=== PATIENT | male | born 1975 | race Caucasian/White ===

== ENCOUNTER → 2016-05-04 | Day surgery (SDC) | payer OTHER ==
[~2016-05-04] VITALS: Ht 165.1 cm; Wt 68.0 kg
[~2016-05-04] MED LIST: ADVAIR 250/501 EA INH; AMITRIPTYLINE100 M1 PO; AMITRIPTYLINE50 MG PO; AMLODIPINE5 MG PO; AMOXICILLIN500 MG PO; ANAPROX DS550 MG PO; ANTIBIOTIC; ANUSOL-HC25 MG RC; ATIVAN0.5 MG PO; ATIVAN1 MG PO; AUGMENTIN 875 M1 TA1 PO; BACTRIM DS 8001 TA1 PO; CARAFATE1 G1 PO; CATAFLAM50 MG PO; CEPHALEXIN500 M1 PO; CIPRO500 MG PO; CIPROFLOXACIN500 MG PO; CLEOCIN150 MG PO; CLINDAMYCIN150 MG PO; CLINDAMYCIN300 MG PO; CYCLOBENZAPRINE5 M3 PO; DARVOCET N 1001 TAB PO; DEPAKOTE250 MG PO; DEPAKOTE500 MG PO; DILANTIN100 MG PO; DOXYCYCLINE MO100 MG PO; FIORICET 325 MG1 TAB PO; FLOMAX0.4 MG PO; FOLIC + B12 1 M1 TAB PO; FOLIC ACID1 MG PO; Fioricet 325 MG1 TAB PO; GOUT MEDICINE; HCTZ; HYDROCODONE BIT1 T11 PO; HYDROCODONE BIT1 T20 PO; IBU-8800 MG PO; IBU800 MG PO; IBUPROFEN200 M2 PO; INDOCIN25 MG PO; INDOCIN50 MG PO; INVEGA6 MG PO; K + POTASSIUM20 MEQ PO; K-DUR20 MEQ PO; KEFLEX500 MG PO; LASIX40 MG PO; LISINOPRIL HCTZ1 TA1 PO; LISINOPRIL/HCTZ1 TA4 PO; LISINOPRIL10 MG PO; LORAZEPAM0.5 MG PO; METOPROLOL SUCC25 M2 PO; MOTRIN IB200 MG PO; MOTRIN300 MG PO; MOTRIN800 MG PO; Motrin,Rufen800 MG PO; NKHM; NORCO 325 MG-7.1 TAB PO; PEN-VEE K500 MG PO; PENICILLIN VK500 MG PO; PENICILLIN-VK500 M1 PO; PEPCID20 MG PO; PERCOCET 325 MG1 TA2 PO; PHENERGAN25 M1 PO; PRILOSEC40 MG PO; PRINIVIL10 MG PO; Peridex 473 ML473 ML PO; QUALITY CHOICE PO; QUETIAPINE FUM100 M3 PO; REQUIP1 MG PO; REQUIP2 M2 PO; ROBAXIN750 MG PO; ROPINIROLE HYDRO1 MG PO; SEPTRA DS 800 M1 TAB PO; SEROQUEL XR300 MG PO; SEROQUEL100 MG PO; SEROQUEL25 MG PO; SEROQUEL50 MG PO; STELAZINE1 MG PO; SUDOGEST30 MG PO; TRAMADOL HCL50 MG PO; TRAMADOL50 MG PO; TYLENOL EXTRA500 M2 PO; TYLENOL500 MG PO; TYLENOL650 M1 PO; ULTRAM50 MG PO; VASOTEC5 MG PO; VENTOLIN H0.09 MG/AC INH; VIBRAMYCIN100 MG PO; VICO10300 PO; VICODIN 5/500 505 MG PO; VICODIN 500 MG-1 TAB PO; VICODIN ES 7501 TAB PO; VICODIN1 TAB PO; VISTARIL25 M1 PO; VITAMIN; VOLTAREN50 M1 PO; VOLTAREN75 MG PO; Vicodin 5/500 505 MG PO; ZANAFLEX2 M1 PO; ZANTAC150 MG PO; ZOFRAN ODT4 MG SL; [UNRECOGNIZED DRUG - OTHER] TP
--- NOTE | ~2016-05-04 | O ---
[place], [place] OPERATIVE NOTE NAME: VILMA GARCIA UNIT #: [id number] ROOM: DOCTOR: BOB HUTTON DMD BIRTHDATE: [birth year] DOS: PREOPERATIVE DIAGNOSES: Caries and anxiety. POSTOPERATIVE DIAGNOSES: Caries and anxiety. ANESTHESIA: General anesthesia with endotracheal intubation. FLUIDS: Minimal. ESTIMATED BLOOD LOSS: Minimal. COMPLICATIONS: None. CONDITION: To PACU, stable. DESCRIPTION OF PROCEDURE: The patient was brought to the OR and placed in supine position, IV and EKG lines were placed. Endotracheal intubation and general anesthesia was administered. The patient was prepped and draped for oral procedures. Risks and benefits were explained to the patient prior to surgery. Clinical exam and x-rays were taken, determined nonrestorable maxillary and mandibular dentition. Procedures performed: Complete extraction of teeth numbers 2, 3, 6, 7, 8, 9, 10, 11, 13, 14, 15, 21, 22, 23, 24, 25, 26, 27, 28, tooth #13 buccal and lingual roots fractured. Full thickness flaps with bone removal to retreat root fragments, full thickness flaps in all 4 quadrants with moderate bone removal, sutured with 4-0 Vicryl, lavaged x 2. Throat pack removed. The patient left the OR in good condition and went to the PACU. BOB HUTTON DMD CM:OPRECORD:OPERATIVE NOTE [id number] BOB HUTTON DMD 05/05/16 1146 interface
[2016-05-04 07:10] VITALS: BP 119/72
[2016-05-04 10:55] VITALS: BP 138/82
[2016-05-04 11:10] VITALS: BP 124/78
[2016-05-04 11:25] VITALS: BP 129/81
[2016-05-04 11:39] VITALS: BP 124/80
[2016-05-04 11:53] VITALS: BP 124/80
== END | disposition home or self-care (01) ==
LOC: SDC 03-31 11:00
DX: K02.9 Dental caries, unspecified (principal); F41.9 Anxiety disorder, unspecified; I10 Essential (primary) hypertension; K21.9 Gastro-esophageal reflux disease without esophagitis; F17.210 Nicotine dependence, cigarettes, uncomplicated; M06.9 Rheumatoid arthritis, unspecified; F32.9 Major depressive disorder, single episode, unspecified; I25.2 Old myocardial infarction; Z86.14 Personal history of Methicillin resistant Staphylococcus aureus infection; J45.909 Unspecified asthma, uncomplicated; Z86.73 Personal history of transient ischemic attack (TIA), and cerebral infarction without residual deficits; Z80.9 Family history of malignant neoplasm, unspecified; Z82.49 Family history of ischemic heart disease and other diseases of the circulatory system; Z83.3 Family history of diabetes mellitus

== ENCOUNTER 2016-08-18 16:05 | Emergency (ER) | payer OTHER ==
[~2016-08-18] VITALS: Wt 68.0 kg
[2016-08-18] MEDS ORDERED: PREDNISONE10 MG PO (18:04)
[2016-08-18] MEDS ORDERED: AUGMENTIN 875875 MG PO (18:04)
[2016-08-18] MEDS ORDERED: DUONEB 3 MG/3 ML3 M1 INH (18:04)
== END 2016-08-18 17:12 | disposition home or self-care (01) ==
LOC: ED 16:05
DX: J20.9 Acute bronchitis, unspecified (principal); F17.200 Nicotine dependence, unspecified, uncomplicated; Z88.1 Allergy status to other antibiotic agents; Z88.6 Allergy status to analgesic agent; Z79.899 Other long term (current) drug therapy

== ENCOUNTER 2016-08-29 11:11 | Emergency (ER) | payer OTHER ==
[~2016-08-29] VITALS: Wt 63.5 kg
[~2016-08-29 11:11] MED LIST changes: +AUGMENTIN 875875 MG PO; +DUONEB 3 MG/3 ML3 M1 INH; +PREDNISONE10 MG PO
[2016-08-29] MEDS ORDERED: AMITRIPTYLINE50 MG PO (11:21)
[2016-09-01] MEDS ORDERED: CEPHALEXIN500 M1 PO (09:54)
== END 2016-08-29 12:46 | disposition home or self-care (01) ==
LOC: ED 11:11
DX: S93.401A Sprain of unspecified ligament of right ankle, initial encounter (principal); F17.200 Nicotine dependence, unspecified, uncomplicated; Z98.890 Other specified postprocedural states; Z79.899 Other long term (current) drug therapy; Z88.6 Allergy status to analgesic agent; Z88.5 Allergy status to narcotic agent; Z88.1 Allergy status to other antibiotic agents; W10.9XXA Fall (on) (from) unspecified stairs and steps, initial encounter; Y93.89 Activity, other specified; Y92.89 Other specified places as the place of occurrence of the external cause; Y99.9 Unspecified external cause status

== ENCOUNTER → 2016-09-01 | Emergency (ER) | payer OTHER ==
[~2016-09-01] VITALS: Ht 167.6 cm; Wt 63.5 kg
== END ==
LOC: ED 09:09
DX: R60.1 Generalized edema (principal); M79.645 Pain in left finger(s); F17.200 Nicotine dependence, unspecified, uncomplicated; Z88.6 Allergy status to analgesic agent; Z88.1 Allergy status to other antibiotic agents; Z79.899 Other long term (current) drug therapy

== ENCOUNTER 2016-09-04 18:58 | Emergency (ER) | payer OTHER ==
[~2016-09-04] VITALS: Ht 165.1 cm; Wt 63.5 kg
== END 2016-09-04 20:42 | disposition home or self-care (01) ==
LOC: ED 18:58
DX: M25.571 Pain in right ankle and joints of right foot (principal); F10.120 Alcohol abuse with intoxication, uncomplicated; M79.671 Pain in right foot; F17.200 Nicotine dependence, unspecified, uncomplicated; Z88.6 Allergy status to analgesic agent; Z88.1 Allergy status to other antibiotic agents; Z79.899 Other long term (current) drug therapy

== ENCOUNTER 2016-10-13 12:17 | Emergency (ER) | payer OTHER ==
[~2016-10-13] VITALS: Ht 167.6 cm; Wt 72.6 kg
[2016-10-13 12:55] LABS: BASO % 0.3 % (0.0-1.0); EOS % 0.7 % (1.0-4.0); HEMATOCRIT 41.5 % (42.0-52.0); HEMOGLOBIN 13.9 g/dl (14.0-18.0); LYMPH # 1.2 10*3/uL (1.3-4.4); LYMPH % 18.7 % (27.0-41.0); MEAN CELL VOLUME 91.4 fl (80.0-94.0); MEAN CORPUSCULAR HGB 30.6 pg (27.0-31.0); MEAN CORPUSCULAR HGB CONC 33.5 g/dl (33.0-37.0); MEAN PLATELET VOLUME 9.7 fl (9.6-12.3); MONO # 0.6 10*3/uL (0.1-1.0); MONO % 9.3 % (3.0-9.0); NEUT # 4.3 10*3/uL (2.3-7.9); NEUT % 70.7 % (47.0-73.0); PLATELET COUNT AUTOMATED 177 10*3/uL (130-400); RED BLOOD COUNT 4.54 10*6/uL (4.50-5.90); RED CELL DISTRI WIDTH 13.3 % (0-14.5); WHITE BLOOD COUNT 6.1 10*3/uL (4.8-10.8)
[2016-10-13 13:06] LABS: BILIRUBIN NEGATIVE (NEGATIVE); BLOOD 1+ (NEGATIVE); CLARITY SL CLOUDY (CLEAR); COLOR YELLOW (YELLOW); GLUCOSE NEGATIVE (NEGATIVE); KETONE NEGATIVE (NEGATIVE); LEUKO ESTERASE NEGATIVE (NEGATIVE); NITRITE NEGATIVE (NEGATIVE); PROTEIN NEGATIVE (NEGATIVE); UROBILINOGEN 0.2 E.U./dl (0.2-1.0)
[2016-10-13 13:07] LABS: BUN 10 mg/dl (7-24); CARBON DIOXIDE 27 mmol/L (21-32); CHLORIDE 106 mmol/L (98-107); EST GLOM FILT AFRICAN AMERICAN > 60 ml/min; GLUCOSE 92 mg/dL (65-99); POTASSIUM 3.5 mmol/L (3.5-5.1); SODIUM 142 mmol/L (136-145)
[2016-10-13 13:15] LABS: URINE AMPHETAMINES < 1000 (1000ng/ml); URINE BARBITURATES < 200 (200ng/ml); URINE COCAINE > 300 (300ng/ml)
[2016-10-13 13:31] LABS: URINE REFLEX COMMENT YES (NO); WBC 0-2 wbc/hpf (0-5)
[2016-10-14 02:48] LABS: ALBUMIN 3.9 gm/dl (3.1-4.5); BILIRUBIN, TOTAL 0.7 mg/dl (0.2-1.0)
[2016-10-14 02:51] LABS: BILIRUBIN, DIRECT 0.2 mg/dL (0.0-0.2)
== END 2016-10-14 13:27 | disposition home health service (06) ==
LOC: ED 12:17
PROVIDERS: Emergency Medicine; Student in an Organized Health Care Education/Training Program
DX: R45.851 Suicidal ideations (principal); F32.9 Major depressive disorder, single episode, unspecified; R45.850 Homicidal ideations; Z87.442 Personal history of urinary calculi; Z88.1 Allergy status to other antibiotic agents; Z88.6 Allergy status to analgesic agent; Z79.899 Other long term (current) drug therapy

== ENCOUNTER 2016-11-06 13:44 | Emergency (ER) | payer OTHER | END 2016-11-06 17:01 | disposition short-term general hospital (02) | LOC: ED 13:44 | DX: N48.39 Other priapism (principal); R03.0 Elevated blood-pressure reading, without diagnosis of hypertension; F17.200 Nicotine dependence, unspecified, uncomplicated; Z98.890 Other specified postprocedural states; Z85.46 Personal history of malignant neoplasm of prostate; Z87.442 Personal history of urinary calculi; Z79.899 Other long term (current) drug therapy; Z88.6 Allergy status to analgesic agent; Z88.5 Allergy status to narcotic agent; Z88.1 Allergy status to other antibiotic agents ==

== ENCOUNTER 2016-11-16 10:43 | Emergency (ER) | payer OTHER ==
[~2016-11-16] VITALS: Ht 167.6 cm; Wt 68.0 kg
[2016-11-16 12:17] LABS: BASO % 0.2 % (0.0-1.0); EOS % 0.2 % (1.0-4.0); HEMATOCRIT 46.3 % (42.0-52.0); HEMOGLOBIN 15.3 g/dl (14.0-18.0); LYMPH % 12.4 % (27.0-41.0); MEAN CORPUSCULAR HGB 30.4 pg (27.0-31.0); MEAN PLATELET VOLUME 9.7 fl (9.6-12.3); MONO # 0.6 10*3/uL (0.1-1.0); MONO % 6.8 % (3.0-9.0); NEUT # 6.7 10*3/uL (2.3-7.9); NEUT % 80.2 % (47.0-73.0); PLATELET COUNT AUTOMATED 167 10*3/uL (130-400); RED BLOOD COUNT 5.03 10*6/uL (4.50-5.90); RED CELL DISTRI WIDTH 13.2 % (0-14.5); WHITE BLOOD COUNT 8.3 10*3/uL (4.8-10.8)
[2016-11-16 12:24] LABS: INTERNATIONAL NORM RATIO 0.9 (2.0-3.5)
[2016-11-16 12:31] LABS: BUN 11 mg/dl (7-24); CARBON DIOXIDE 30 mmol/L (21-32); CHLORIDE 106 mmol/L (98-107); EST GLOM FILT AFRICAN AMERICAN > 60 ml/min; GLUCOSE 115 mg/dL (65-99); POTASSIUM 5.5 mmol/L (3.5-5.1); SODIUM 138 mmol/L (136-145)
== END 2016-11-16 12:58 | disposition short-term general hospital (02) ==
LOC: ED 10:43
PROVIDERS: Nurse Practitioner Family
DX: N48.30 Priapism, unspecified (principal); F17.200 Nicotine dependence, unspecified, uncomplicated; Z88.6 Allergy status to analgesic agent; Z88.1 Allergy status to other antibiotic agents; Z79.899 Other long term (current) drug therapy

== ENCOUNTER 2016-11-26 09:35 | Emergency (ER) | payer OTHER ==
[~2016-11-26] VITALS: Wt 70.3 kg
[2016-11-26 10:20] LABS: BASO % 0.5 % (0.0-1.0); EOS # 0.1 10*3/uL (0.0-0.4); EOS % 1.1 % (1.0-4.0); HEMATOCRIT 43.7 % (42.0-52.0); HEMOGLOBIN 14.8 g/dl (14.0-18.0); LYMPH # 1.3 10*3/uL (1.3-4.4); LYMPH % 20.9 % (27.0-41.0); MEAN CELL VOLUME 90.1 fl (80.0-94.0); MEAN CORPUSCULAR HGB 30.5 pg (27.0-31.0); MEAN CORPUSCULAR HGB CONC 33.9 g/dl (33.0-37.0); MEAN PLATELET VOLUME 9.1 fl (9.6-12.3); MONO # 0.7 10*3/uL (0.1-1.0); MONO % 10.3 % (3.0-9.0); NEUT # 4.3 10*3/uL (2.3-7.9); NEUT % 66.9 % (47.0-73.0); PLATELET COUNT AUTOMATED 197 10*3/uL (130-400); RED BLOOD COUNT 4.85 10*6/uL (4.50-5.90); RED CELL DISTRI WIDTH 12.7 % (0-14.5); WHITE BLOOD COUNT 6.4 10*3/uL (4.8-10.8)
[2016-11-26 10:28] LABS: ALBUMIN 3.9 gm/dl (3.1-4.5); ALKALINE PHOSPHATASE 79 U/L (45-117); BILIRUBIN, TOTAL 0.3 mg/dl (0.2-1.0); BUN 17 mg/dl (7-24); CARBON DIOXIDE 24 mmol/L (21-32); CHLORIDE 112 mmol/L (98-107); EST GLOM FILT AFRICAN AMERICAN > 60 ml/min; GLUCOSE 107 mg/dL (65-99); POTASSIUM 4.1 mmol/L (3.5-5.1); SGOT/AST 27 IU/L (3-35); SGPT/ALT 65 U/L (12-78); SODIUM 141 mmol/L (136-145); TOTAL PROTEIN 7.5 gm/dL (6.4-8.2)
[2016-11-26 10:29] LABS: PROTHROMBIN TIME 10.1 SECONDS (9.0-12.4)
== END 2016-11-26 11:20 | disposition short-term general hospital (02) ==
LOC: ED 09:35
PROVIDERS: Nurse Practitioner Family
DX: N48.30 Priapism, unspecified (principal); R03.0 Elevated blood-pressure reading, without diagnosis of hypertension; F17.200 Nicotine dependence, unspecified, uncomplicated; Z87.442 Personal history of urinary calculi; Z88.1 Allergy status to other antibiotic agents; Z88.6 Allergy status to analgesic agent

== ENCOUNTER 2017-03-14 15:19 | Emergency (ER) | payer OTHER ==
[~2017-03-14] VITALS: Wt 72.6 kg
[2017-03-14 15:52] LABS: BILIRUBIN NEGATIVE (NEGATIVE); BLOOD NEGATIVE (NEGATIVE); CLARITY SL CLOUDY (CLEAR); COLOR YELLOW (YELLOW); GLUCOSE NEGATIVE (NEGATIVE); KETONE NEGATIVE (NEGATIVE); LEUKO ESTERASE NEGATIVE (NEGATIVE); NITRITE NEGATIVE (NEGATIVE); PH 6.5 (5.0-9.0); SPECIFIC GRAVITY 1.015 (1.005-1.030); UROBILINOGEN 0.2 E.U./dl (0.2-1.0)
[2017-03-14 16:05] LABS: BACTERIA 1+; EPITHELIAL CELLS 0-2; RBC 0-2 rbc/hpf (0-2)
[2017-03-14 16:19] LABS: BASO % 0.3 % (0.0-1.0); EOS # 0.1 10*3/uL (0.0-0.4); EOS % 1.2 % (1.0-4.0); HEMATOCRIT 46.7 % (42.0-52.0); HEMOGLOBIN 15.5 g/dl (14.0-18.0); LYMPH # 1.5 10*3/uL (1.3-4.4); MEAN CORPUSCULAR HGB 28.9 pg (27.0-31.0); MEAN CORPUSCULAR HGB CONC 33.2 g/dl (33.0-37.0); MEAN PLATELET VOLUME 9.8 fl (9.6-12.3); MONO # 0.6 10*3/uL (0.1-1.0); MONO % 6.7 % (3.0-9.0); NEUT # 6.4 10*3/uL (2.3-7.9); NEUT % 74.5 % (47.0-73.0); PLATELET COUNT AUTOMATED 220 10*3/uL (130-400); RED BLOOD COUNT 5.37 10*6/uL (4.50-5.90); RED CELL DISTRI WIDTH 13.2 % (0-14.5); WHITE BLOOD COUNT 8.6 10*3/uL (4.8-10.8)
[2017-03-14 16:36] LABS: ALBUMIN 4.4 gm/dl (3.1-4.5); ALKALINE PHOSPHATASE 86 U/L (45-117); BUN 9 mg/dl (7-24); CHLORIDE 102 mmol/L (98-107); CREATININE 0.87 mg/dL (0.70-1.30); POTASSIUM 4.6 mmol/L (3.5-5.1); SGOT/AST 46 IU/L (3-35); SGPT/ALT 76 U/L (12-78); SODIUM 140 mmol/L (136-145); TOTAL PROTEIN 8.2 gm/dL (6.4-8.2)
[2017-03-14] MEDS ORDERED: CYCLOBENZAPRINE5 M3 PO (18:29)
== END 2017-03-14 18:37 | disposition home or self-care (01) ==
LOC: ED 15:19
PROVIDERS: Nurse Practitioner
DX: M54.5 Low back pain (principal); F17.200 Nicotine dependence, unspecified, uncomplicated; F10.10 Alcohol abuse, uncomplicated; Z79.899 Other long term (current) drug therapy; Z88.1 Allergy status to other antibiotic agents; Z88.8 Allergy status to other drugs, medicaments and biological substances; Z88.5 Allergy status to narcotic agent

== ENCOUNTER 2017-09-08 03:45 | Emergency (ER) | payer OTHER ==
[~2017-09-08] VITALS: Ht 165.1 cm; Wt 72.6 kg
[2017-09-08] MEDS ORDERED: AMITRIPTYLINE25 MG PO (03:58)
[2017-09-08 04:36] LABS: BILIRUBIN NEGATIVE (NEGATIVE); BLOOD TRACE-INTACT (NEGATIVE); CLARITY CLEAR (CLEAR); COLOR YELLOW (YELLOW); GLUCOSE NEGATIVE (NEGATIVE); KETONE TRACE (NEGATIVE); LEUKO ESTERASE NEGATIVE (NEGATIVE); NITRITE NEGATIVE (NEGATIVE); SPECIFIC GRAVITY 1.025 (1.005-1.030)
[2017-09-08 04:39] LABS: BASO % 0.5 % (0.0-1.0); EOS # 0.1 10*3/uL (0.0-0.4); EOS % 1.9 % (1.0-4.0); HEMATOCRIT 44.6 % (42.0-52.0); HEMOGLOBIN 15.1 g/dl (14.0-18.0); LYMPH # 1.3 10*3/uL (1.3-4.4); LYMPH % 20.7 % (27.0-41.0); MEAN CELL VOLUME 90.3 fl (80.0-94.0); MEAN CORPUSCULAR HGB 30.6 pg (27.0-31.0); MEAN CORPUSCULAR HGB CONC 33.9 g/dl (33.0-37.0); MEAN PLATELET VOLUME 9.5 fl (9.6-12.3); MONO # 0.8 10*3/uL (0.1-1.0); MONO % 12.4 % (3.0-9.0); NEUT % 64.2 % (47.0-73.0); PLATELET COUNT AUTOMATED 177 10*3/uL (130-400); RED BLOOD COUNT 4.94 10*6/uL (4.50-5.90); RED CELL DISTRI WIDTH 13.2 % (0-14.5); WHITE BLOOD COUNT 6.3 10*3/uL (4.8-10.8)
[2017-09-08 04:44] LABS: BACTERIA TRACE; CALCIUM OXALATE CRYSTALS 1+
[2017-09-08 04:54] LABS: ALBUMIN 4.1 gm/dl (3.1-4.5); ALKALINE PHOSPHATASE 80 U/L (45-117); BUN 15 mg/dl (7-24); CHLORIDE 108 mmol/L (98-107); CREATININE 0.79 mg/dL (0.70-1.30); POTASSIUM 3.6 mmol/L (3.5-5.1); SGOT/AST 40 IU/L (3-35); SGPT/ALT 73 U/L (12-78); SODIUM 140 mmol/L (136-145); TOTAL PROTEIN 7.2 gm/dL (6.4-8.2)
[2017-09-08] MEDS ORDERED: ANAPROX DS550 MG PO (06:03)
== END 2017-09-08 06:37 | disposition home or self-care (01) ==
LOC: ED 03:45
PROVIDERS: Emergency Medicine Emergency Medical Services
DX: M25.551 Pain in right hip (principal); R10.32 Left lower quadrant pain; Z88.1 Allergy status to other antibiotic agents; Z88.6 Allergy status to analgesic agent

== ENCOUNTER 2017-09-13 13:08 | Emergency (ER) | payer OTHER ==
[~2017-09-13] VITALS: Ht 165.1 cm; Wt 74.8 kg
[~2017-09-13 13:08] MED LIST changes: +AMITRIPTYLINE25 MG PO
[2017-09-13 14:06] LABS: BASO % 0.3 % (0.0-1.0); EOS % 0.5 % (1.0-4.0); HEMOGLOBIN 15.5 g/dl (14.0-18.0); LYMPH % 14.8 % (27.0-41.0); MEAN CELL VOLUME 89.3 fl (80.0-94.0); MEAN CORPUSCULAR HGB 30.1 pg (27.0-31.0); MEAN CORPUSCULAR HGB CONC 33.7 g/dl (33.0-37.0); MEAN PLATELET VOLUME 9.3 fl (9.6-12.3); MONO # 0.5 10*3/uL (0.1-1.0); MONO % 7.8 % (3.0-9.0); NEUT # 4.9 10*3/uL (2.3-7.9); NEUT % 76.3 % (47.0-73.0); PLATELET COUNT AUTOMATED 158 10*3/uL (130-400); RED BLOOD COUNT 5.15 10*6/uL (4.50-5.90); RED CELL DISTRI WIDTH 13.2 % (0-14.5); WHITE BLOOD COUNT 6.4 10*3/uL (4.8-10.8)
[2017-09-13 14:24] LABS: ALBUMIN 4.3 gm/dl (3.1-4.5); ALKALINE PHOSPHATASE 74 U/L (45-117); BUN 10 mg/dl (7-24); CHLORIDE 102 mmol/L (98-107); CREATININE 0.79 mg/dL (0.70-1.30); POTASSIUM 3.6 mmol/L (3.5-5.1); SGOT/AST 42 IU/L (3-35); SGPT/ALT 69 U/L (12-78); SODIUM 140 mmol/L (136-145); TOTAL PROTEIN 7.3 gm/dL (6.4-8.2)
[2017-09-13 14:25] LABS: ETHYL ALCOHOL < 3.0 mg/dl (<3)
[2017-09-13 14:38] LABS: URINE AMPHETAMINES < 1000 (1000ng/ml); URINE BARBITURATES < 200 (200ng/ml); URINE BENZODIAZEPINES < 200 (200ng/ml); URINE CANNABINOIDS (THC) > 50 (50ng/ml); URINE COCAINE < 300 (300ng/ml); URINE METHADONE < 300 (300ng/ml); URINE OPIATES < 300 (300ng/ml)
[2017-09-13 14:39] LABS: URINE PHENCYCLIDINE < 25 (25ng/ml)
== END 2017-09-13 17:33 | disposition home or self-care (01) ==
LOC: ED 13:08
PROVIDERS: Emergency Medicine
DX: F43.21 Adjustment disorder with depressed mood (principal); F31.9 Bipolar disorder, unspecified; F17.200 Nicotine dependence, unspecified, uncomplicated; Z88.6 Allergy status to analgesic agent; Z88.1 Allergy status to other antibiotic agents; Z79.899 Other long term (current) drug therapy

== ENCOUNTER 2017-10-10 13:24 | Emergency (ER) | payer OTHER ==
[~2017-10-10] VITALS: Ht 165.1 cm; Wt 72.6 kg
--- NOTE | ~2017-10-10 | EKG ---
[place], [place] ELECTROCARDIOGRAM REPORT NAME: VILMA GARCIA UNIT #: [id number] ROOM: DOCTOR: KANDY DOHERTY MD BIRTHDATE: [birth year] DOS: 10/10/2017 TIME: 1615 hours. FINDINGS: 1. Normal sinus rhythm at 58 beats per minute. 2. The tracing is normal. 3. No significant change from ECG done at 1328 hours of the same day. KANDY DOHERTY MD CM:EKGRPT:ELECTROCARDIOGRAM REPORT [id number] KANDY DOHERTY MD
--- NOTE | ~2017-10-10 | EKG ---
[place], [place] ELECTROCARDIOGRAM REPORT NAME: VILMA GARCIA UNIT #: [id number] ROOM: DOCTOR: KANDY DOHERTY MD BIRTHDATE: [birth year] DOS: 10/10/2017 TIME: 1328 hours. FINDINGS: 1. Normal sinus rhythm at 68 beats per minute. 2. The tracing is normal. 3. No previous tracing is available for comparison. KANDY DOHERTY MD CM:EKGRPT:ELECTROCARDIOGRAM REPORT 0932 1312 KANDY DOHERTY MD
[2017-10-10 13:57] LABS: BASO % 0.4 % (0.0-1.0); EOS % 0.4 % (1.0-4.0); HEMOGLOBIN 14.9 g/dl (14.0-18.0); LYMPH # 1.5 10*3/uL (1.3-4.4); LYMPH % 21.7 % (27.0-41.0); MEAN CORPUSCULAR HGB 30.5 pg (27.0-31.0); MEAN CORPUSCULAR HGB CONC 33.1 g/dl (33.0-37.0); MEAN PLATELET VOLUME 9.4 fl (9.6-12.3); MONO # 0.6 10*3/uL (0.1-1.0); NEUT # 4.8 10*3/uL (2.3-7.9); NEUT % 68.2 % (47.0-73.0); PLATELET COUNT AUTOMATED 184 10*3/uL (130-400); RED BLOOD COUNT 4.89 10*6/uL (4.50-5.90); RED CELL DISTRI WIDTH 13.5 % (0-14.5); WHITE BLOOD COUNT 7.1 10*3/uL (4.8-10.8)
[2017-10-10 14:14] LABS: ACT PARTIAL THROMBO TIME 21.7 SECONDS (20.8-31.5); ALBUMIN 4.3 gm/dl (3.1-4.5); BUN 9 mg/dl (7-24); CHLORIDE 109 mmol/L (98-107); POTASSIUM 3.7 mmol/L (3.5-5.1); SGOT/AST 40 IU/L (3-35); SODIUM 141 mmol/L (136-145); TOTAL PROTEIN 7.4 gm/dL (6.4-8.2)
[2017-10-10 14:24] LABS: ALKALINE PHOSPHATASE 68 U/L (45-117); SGPT/ALT 67 U/L (12-78)
[2017-10-10 14:25] LABS: TROPONIN I < 0.015 ng/ml (<0.045)
== END 2017-10-10 17:11 | disposition home or self-care (01) ==
LOC: ED 13:24
PROVIDERS: Emergency Medicine
DX: R09.1 Pleurisy (principal); R07.89 Other chest pain; F17.200 Nicotine dependence, unspecified, uncomplicated; Z98.890 Other specified postprocedural states; Z79.899 Other long term (current) drug therapy; Z88.5 Allergy status to narcotic agent; Z88.6 Allergy status to analgesic agent; Z88.1 Allergy status to other antibiotic agents